=== PATIENT | male | born 1975 | race Caucasian/White ===

== ENCOUNTER 2024-07-28 07:45 | Day surgery (SDC) | payer OTHER ==
[~2024-07-28] VITALS: Ht 190.5 cm; Wt 113.4 kg
[2024-07-28] MEDS ORDERED: LIDOCAINE 2% 100 MG/5 ML UJET TP ONE (09:13)
[2024-07-28] MEDS ORDERED: fentaNYL citrate 0.05 MG/ML VIAL ONE (09:13)
[2024-07-28] MEDS ORDERED: MIDAZOLAM 2 MG/2 ML VIAL ONE (11:27)
[2024-07-28] MEDS: fentaNYL citrate 0.05 MG/ML VIAL IVP ONE (11:36)
[2024-07-28] MEDS ORDERED: LABETALOL 20 MG/4 ML VIAL IVP ONE (11:44)
[2024-07-28] MEDS: LABETALOL 20 MG/4 ML VIAL IVP ONE (11:46)
== END 2024-07-28 12:40 | disposition home or self-care (01) ==
LOC: MDS 07:45 → MMU 07:46 → MDS 12:40
PROVIDERS: ATTEND Internal Medicine Gastroenterology
DX: R19.7 Diarrhea, unspecified (principal); I10 Essential (primary) hypertension; E11.9 Type 2 diabetes mellitus without complications; Z79.899 Other long term (current) drug therapy; Z98.890 Other specified postprocedural states
CPT/HCPCS: 45380; 82948; J2250; J3010; J3490